=== PATIENT | male | born 1990 | race Caucasian/White ===

== ENCOUNTER 2018-09-09 19:19 | Outpatient (REF) | payer BC, SELFPAY ==
[2018-09-09 20:13] LABS: Bilirubin Negative (Negative); Blood Negative (Negative); Clarity Clear; Glucose Negative (Negative); Ketones Negative (Negative); Leukocyte Esterase Negative (Negative); Nitrite Negative (Negative); Specific Gravity 1.015 (1.005-1.025); Urobilinogen 0.2 EU/dL (Up TO 0.2)
[2018-09-12 14:40] LABS: Chlamydia Result Negative; GC Result Negative; Specimen Description URINE
== END 2018-09-09 19:39 ==
LOC: LBN 19:19
PROVIDERS: PCP Internal Medicine; Visit Provider Emergency Medicine
DX: R30.0 Dysuria (principal); Z11.3 Encounter for screening for infections with a predominantly sexual mode of transmission
CPT/HCPCS: 87491; 87591; 81003; 87086

== ENCOUNTER 2021-10-15 12:16 | Outpatient (REF) | payer BC, SELFPAY ==
--- NOTE | 2021-10-15 09:20 | SKI_PTH ---
PATIENT: Vernon Swain LOC: [facility] U#:[id number] AGE/SX: 31/M ROOM: RE10/15/[address]: Juventino Harris : 1990 BED: DIS: 10/15/2021 SPEC #: [id number] RECD: 10/15/21 16:55 STATUS: LIANET REQ #: [id number] YOGI: 10/15/21 09:[address]: Juventino Harris DEPT: Surgical Specimen RECD BY: Whitney Loving ENTERED: 10/15/21 16:56 SP TYPE: CINDY ACUÑA DR: Marcelo Baeza Tissues: 1 - SKIN BIOPSY(SHAVE/PUNCH) 2 - SKIN BIOPSY(SHAVE/PUNCH) Procedures: SKIN LEVEL 4 Comments: [id number]
== END 2021-10-15 12:17 | disposition home or self-care (01) ==
LOC: NCHCN 12:16
PROVIDERS: PCP Internal Medicine; Visit Provider Family Medicine
DX: D22.5 Melanocytic nevi of trunk (principal)
CPT/HCPCS: 88305